=== PATIENT | male | born 1955 | race Caucasian/White ===

== ENCOUNTER → 2016-10-09 | Outpatient (CLI) | payer OTHER ==
[2016-10-09 09:08] LABS: ALBUMIN 3.9 gm/dl (3.1-4.5); ALKALINE PHOSPHATASE 59 U/L (45-117); BILIRUBIN, TOTAL 0.8 mg/dl (0.2-1.0); BUN 14 mg/dl (7-24); CARBON DIOXIDE 28 mmol/L (21-32); CHLORIDE 109 mmol/L (98-107); CHOLESTEROL 157 mg/dL (<200); CPK 238 U/L (39-308); EST GLOM FILT AFRICAN AMERICAN > 60 ml/min; GLUCOSE 97 mg/dL (65-99); HDL CHOLESTEROL 34 mg/dl (40-60); LDL CHOLESTEROL 108 mg/dL (9-159); SGOT/AST 21 IU/L (3-35); SGPT/ALT 26 U/L (12-78); SODIUM 141 mmol/L (136-145); TRIGLYCERIDES 75 mg/dl (<150); VLDL CHOLESTEROL 15 mg/dL (6-40)
[2016-10-11 00:04] LABS: TESTOSTERONE FREE, (DIRECT) 27.5 pg/mL (6.6-18.1)
== END | disposition home or self-care (01) ==
LOC: LAB 08:14
PROVIDERS: Family Medicine
DX: E78.00 Pure hypercholesterolemia, unspecified (principal); K21.9 Gastro-esophageal reflux disease without esophagitis; N20.0 Calculus of kidney

== ENCOUNTER → 2016-10-25 | Outpatient (CLI) | payer OTHER ==
[2016-10-26 07:06] LABS: LUTEINIZING HORMONE 004283 0.1 mIU/mL (1.7-8.6); PROLACTIN 004465 5.2 ng/mL (4.0-15.2)
== END | disposition home or self-care (01) ==
LOC: LAB 08:27
PROVIDERS: Internal Medicine
DX: E29.1 Testicular hypofunction (principal)

== ENCOUNTER → 2017-02-27 | Outpatient (CLI) | payer OTHER ==
[2017-02-27 09:30] LABS: ALBUMIN 4.1 gm/dl (3.1-4.5); ALKALINE PHOSPHATASE 68 U/L (45-117); BILIRUBIN, DIRECT 0.2 mg/dL (0.0-0.2); BUN 21 mg/dl (7-24); CHLORIDE 105 mmol/L (98-107); CHOLESTEROL 201 mg/dL (<200); CREATININE 1.02 mg/dL (0.70-1.30); HDL CHOLESTEROL 41 mg/dl (40-60); LDL CHOLESTEROL 138 mg/dL (9-159); POTASSIUM 4.2 mmol/L (3.5-5.1); SGOT/AST 20 IU/L (3-35); SGPT/ALT 27 U/L (12-78); SODIUM 140 mmol/L (136-145); TOTAL PROTEIN 7.5 gm/dL (6.4-8.2); TRIGLYCERIDES 108 mg/dl (<150); VLDL CHOLESTEROL 22 mg/dL (6-40)
[2017-02-27 10:20] LABS: PTH INTACT 47.5 pg/mL (14.0-72.0); VITAMIN D, 25-HYDROXY 28.4 ng/mL (30-100)
== END | disposition home or self-care (01) ==
LOC: LAB 08:29
PROVIDERS: Internal Medicine
DX: N20.0 Calculus of kidney (principal); E78.5 Hyperlipidemia, unspecified; E29.1 Testicular hypofunction; N40.0 Benign prostatic hyperplasia without lower urinary tract symptoms

== ENCOUNTER → 2017-02-28 | Outpatient (CLI) | payer OTHER ==
[2017-03-02 02:05] LABS: CITRIC ACID 24 HR URINE 399 mg/24 hr (320-1240)
== END | disposition home or self-care (01) ==
LOC: LAB 10:09
PROVIDERS: Internal Medicine
DX: N20.0 Calculus of kidney (principal)

== ENCOUNTER → 2017-07-09 | Outpatient (CLI) | payer OTHER ==
[2017-07-09 11:02] LABS: CHLORIDE 106 mmol/L (98-107); POTASSIUM 4.2 mmol/L (3.5-5.1); SODIUM 140 mmol/L (136-145)
[2017-07-09 11:08] LABS: ALBUMIN 4.2 gm/dl (3.1-4.5); ALKALINE PHOSPHATASE 54 U/L (45-117); BILIRUBIN, DIRECT 0.2 mg/dL (0.0-0.2); BUN 21 mg/dl (7-24); CHOLESTEROL 185 mg/dL (<200); CREATININE 1.12 mg/dL (0.70-1.30); HDL CHOLESTEROL 35 mg/dl (40-60); LDL CHOLESTEROL 130 mg/dL (9-159); SGOT/AST 22 IU/L (3-35); SGPT/ALT 28 U/L (12-78); TOTAL PROTEIN 7.5 gm/dL (6.4-8.2); TRIGLYCERIDES 101 mg/dl (<150); VLDL CHOLESTEROL 20 mg/dL (6-40)
[2017-07-09 12:06] LABS: VITAMIN D, 25-HYDROXY 48.5 ng/mL (30-100)
== END | disposition home or self-care (01) ==
LOC: LAB 09:53
PROVIDERS: Internal Medicine
DX: E78.5 Hyperlipidemia, unspecified (principal); E55.9 Vitamin D deficiency, unspecified; N20.0 Calculus of kidney; E34.9 Endocrine disorder, unspecified

== ENCOUNTER → 2018-06-02 | Outpatient (CLI) | payer MEDICARE ==
[2018-06-02 10:33] LABS: ALBUMIN 3.9 gm/dl (3.1-4.5); BUN 17 mg/dl (7-24); CHLORIDE 105 mmol/L (98-107); CREATININE 1.07 mg/dL (0.70-1.30); POTASSIUM 3.8 mmol/L (3.5-5.1); SGOT/AST 21 IU/L (3-35); SGPT/ALT 33 U/L (12-78); SODIUM 138 mmol/L (136-145); TOTAL PROTEIN 7.5 gm/dL (6.4-8.2); URIC ACID 6.2 mg/dL (3.5-7.2)
[2018-06-02 10:37] LABS: ALKALINE PHOSPHATASE 58 U/L (45-117); BILIRUBIN, DIRECT 0.2 mg/dL (0.0-0.2); CHOLESTEROL 147 mg/dL (<200); HDL CHOLESTEROL 31 mg/dl (40-60); LDL CHOLESTEROL 81 mg/dL (9-159); TRIGLYCERIDES 175 mg/dl (<150); VLDL CHOLESTEROL 35 mg/dL (6-40)
[2018-06-02 11:19] LABS: VITAMIN D, 25-HYDROXY 52.8 ng/mL (30-100)
== END | disposition home or self-care (01) ==
LOC: LAB 09:18
PROVIDERS: Internal Medicine
DX: E55.9 Vitamin D deficiency, unspecified (principal); E78.5 Hyperlipidemia, unspecified; N20.0 Calculus of kidney; E34.9 Endocrine disorder, unspecified

== ENCOUNTER → 2018-10-28 | Outpatient (CLI) | payer MEDICARE ==
[2018-10-28 09:04] LABS: VITAMIN D, 25-HYDROXY 50.6 ng/mL (30-100)
[2018-10-28 09:47] LABS: ALBUMIN 4.2 gm/dl (3.1-4.5); ALKALINE PHOSPHATASE 76 U/L (45-117); BILIRUBIN, DIRECT 0.2 mg/dL (0.0-0.2); BUN 22 mg/dl (7-24); CHLORIDE 103 mmol/L (98-107); CHOLESTEROL 132 mg/dL (<200); CREATININE 1.05 mg/dL (0.70-1.30); HDL CHOLESTEROL 43 mg/dl (40-60); LDL CHOLESTEROL 72 mg/dL (9-159); POTASSIUM 3.7 mmol/L (3.5-5.1); SGOT/AST 28 IU/L (3-35); SGPT/ALT 55 U/L (12-78); SODIUM 139 mmol/L (136-145); TOTAL PROTEIN 7.3 gm/dL (6.4-8.2); TRIGLYCERIDES 83 mg/dl (<150); VLDL CHOLESTEROL 17 mg/dL (6-40)
== END | disposition home or self-care (01) ==
LOC: LAB 08:06
PROVIDERS: Internal Medicine
DX: E78.5 Hyperlipidemia, unspecified (principal); E34.9 Endocrine disorder, unspecified; E55.9 Vitamin D deficiency, unspecified; N40.0 Benign prostatic hyperplasia without lower urinary tract symptoms; Z79.899 Other long term (current) drug therapy

== ENCOUNTER → 2018-11-20 | Outpatient (CLI) | payer MEDICARE ==
[2018-11-20 08:09] LABS: BASO % 0.6 % (0.0-1.0); EOS # 0.2 10*3/uL (0.0-0.4); HEMATOCRIT 41.2 % (42.0-52.0); HEMOGLOBIN 14.1 g/dl (14.0-18.0); LYMPH # 1.4 10*3/uL (1.3-4.4); LYMPH % 20.8 % (27.0-41.0); MEAN CELL VOLUME 90.7 fl (80.0-94.0); MEAN CORPUSCULAR HGB 31.1 pg (27.0-31.0); MEAN CORPUSCULAR HGB CONC 34.2 g/dl (33.0-37.0); MEAN PLATELET VOLUME 9.9 fl (9.6-12.3); MONO # 0.7 10*3/uL (0.1-1.0); MONO % 10.4 % (3.0-9.0); NEUT # 4.4 10*3/uL (2.3-7.9); NEUT % 64.8 % (47.0-73.0); PLATELET COUNT AUTOMATED 163 10*3/uL (130-400); RED BLOOD COUNT 4.54 10*6/uL (4.50-5.90); RED CELL DISTRI WIDTH 12.4 % (0-14.5); WHITE BLOOD COUNT 6.7 10*3/uL (4.8-10.8)
[2018-11-20 08:33] LABS: BUN 16 mg/dl (7-24); CHLORIDE 105 mmol/L (98-107); CREATININE 0.97 mg/dL (0.70-1.30); POTASSIUM 3.8 mmol/L (3.5-5.1); SODIUM 139 mmol/L (136-145)
== END | disposition home or self-care (01) ==
LOC: LAB 07:38
PROVIDERS: Orthopaedic Surgery
DX: Z01.818 Encounter for other preprocedural examination (principal); M79.645 Pain in left finger(s); G89.29 Other chronic pain; M65.352 Trigger finger, left little finger; M65.322 Trigger finger, left index finger; S69.92XA Unspecified injury of left wrist, hand and finger(s), initial encounter; X58.XXXA Exposure to other specified factors, initial encounter; Y93.89 Activity, other specified; Y92.89 Other specified places as the place of occurrence of the external cause; Y99.8 Other external cause status

== ENCOUNTER → 2019-08-25 | Outpatient (CLI) | payer MEDICARE ==
[2019-08-25 08:47] LABS: ALKALINE PHOSPHATASE 75 U/L (45-117); BILIRUBIN, DIRECT 0.2 mg/dL (0.0-0.2); BUN 19 mg/dl (7-24); CHLORIDE 105 mmol/L (98-107); CHOLESTEROL 121 mg/dL (<200); CREATININE 1.19 mg/dL (0.70-1.30); POTASSIUM 3.8 mmol/L (3.5-5.1); SGOT/AST 34 IU/L (3-35); SGPT/ALT 43 U/L (12-78); SODIUM 138 mmol/L (136-145); TOTAL PROTEIN 7.6 gm/dL (6.4-8.2); TRIGLYCERIDES 98 mg/dl (<150); VLDL CHOLESTEROL 20 mg/dL (6-40)
[2019-08-25 08:50] LABS: HDL CHOLESTEROL 35 mg/dl (40-60); LDL CHOLESTEROL 66 mg/dL (9-159)
[2019-08-25 10:12] LABS: PTH INTACT 50.1 pg/mL (18.5-88.0)
[2019-08-25 10:13] LABS: VITAMIN D, 25-HYDROXY 55.1 ng/mL (30-100)
== END | disposition home or self-care (01) ==
LOC: LAB 07:58
PROVIDERS: Internal Medicine
DX: N20.0 Calculus of kidney (principal); E29.1 Testicular hypofunction; E34.9 Endocrine disorder, unspecified; E78.5 Hyperlipidemia, unspecified; N40.0 Benign prostatic hyperplasia without lower urinary tract symptoms; E55.9 Vitamin D deficiency, unspecified

== ENCOUNTER → 2020-01-25 | Outpatient (CLI) | payer MEDICARE ==
[2020-01-25 09:23] LABS: ALBUMIN 3.9 gm/dl (3.1-4.5); ALKALINE PHOSPHATASE 72 U/L (45-117); BILIRUBIN, DIRECT 0.2 mg/dL (0.0-0.2); BUN 18 mg/dl (7-24); CHLORIDE 107 mmol/L (98-107); CHOLESTEROL 137 mg/dL (<200); CREATININE 1.27 mg/dL (0.70-1.30); HDL CHOLESTEROL 42 mg/dl (40-60); LDL CHOLESTEROL 72 mg/dL (9-159); POTASSIUM 3.8 mmol/L (3.5-5.1); SGOT/AST 23 IU/L (3-35); SGPT/ALT 33 U/L (12-78); SODIUM 140 mmol/L (136-145); TOTAL PROTEIN 7.5 gm/dL (6.4-8.2); TRIGLYCERIDES 114 mg/dl (<150); URIC ACID 3.8 mg/dL (3.5-7.2); VLDL CHOLESTEROL 23 mg/dL (6-40)
[2020-01-25 10:29] LABS: VITAMIN D, 25-HYDROXY 56.1 ng/mL (30-100)
[2020-01-25 10:30] LABS: PTH INTACT 40.4 pg/mL (18.5-88.0)
== END | disposition home or self-care (01) ==
LOC: LAB 08:02
PROVIDERS: ATTEND Internal Medicine
DX: E55.9 Vitamin D deficiency, unspecified (principal); R73.02 Impaired glucose tolerance (oral); N20.0 Calculus of kidney; E74.39 Other disorders of intestinal carbohydrate absorption; E78.5 Hyperlipidemia, unspecified; E34.9 Endocrine disorder, unspecified

== ENCOUNTER → 2020-05-25 | Outpatient (CLI) | payer MEDICARE ==
[2020-05-25 10:43] LABS: ALKALINE PHOSPHATASE 75 U/L (45-117); BILIRUBIN, DIRECT 0.3 mg/dL (0.0-0.2); BUN 18 mg/dl (7-24); CHLORIDE 103 mmol/L (98-107); CHOLESTEROL 136 mg/dL (<200); CREATININE 1.32 mg/dL (0.70-1.30); HDL CHOLESTEROL 46 mg/dl (40-60); LDL CHOLESTEROL 76 mg/dL (9-159); POTASSIUM 4.1 mmol/L (3.5-5.1); SGOT/AST 24 IU/L (3-35); SGPT/ALT 41 U/L (12-78); SODIUM 138 mmol/L (136-145); TOTAL PROTEIN 7.5 gm/dL (6.4-8.2); TRIGLYCERIDES 68 mg/dl (<150); VLDL CHOLESTEROL 14 mg/dL (6-40)
[2020-05-25 11:05] LABS: PTH INTACT 42.7 pg/mL (18.5-88.0)
== END | disposition home or self-care (01) ==
LOC: LAB 09:40
PROVIDERS: ATTEND Internal Medicine
DX: N20.0 Calculus of kidney (principal); E78.5 Hyperlipidemia, unspecified; E74.39 Other disorders of intestinal carbohydrate absorption; E55.9 Vitamin D deficiency, unspecified; E34.9 Endocrine disorder, unspecified; R73.09 Other abnormal glucose

== ENCOUNTER → 2020-05-26 | Outpatient (CLI) | payer MEDICARE ==
[2020-06-08 22:06] LABS: BUSHITE 3.29 ratio (0.00-3.00); CALCIUM OXALATE 13.67 ratio (0.00-6.00); CALCIUM, URINE 11.9 mg/dL (Not Estab.); CITRIC ACID (CITRATE) 426 mg/24 hr (320-1240); CREATININE, URINE 1428.4 mg/24 hr (1000.0-2000.0); CREATININE, URINE 146.5 mg/dL (Not Estab.); MAGNESIUM, URINE 14.4 mg/dL (Not Estab.); MONOSODIUM URATE 12.15 ratio (0.00-4.00); OSMOLALITY, URINE 753 (300-900); SODIUM, URINE 172 (58-337); SODIUM, URINE 176 mmol/L (Not Estab.); STRUVITE 0.38 ratio (0.00-1.00); URIC ACID 1.39 ratio (0.00-1.20); pH 24 HR URINE 6.3 (.)
== END | disposition home or self-care (01) ==
LOC: LAB 12:06
PROVIDERS: ATTEND Internal Medicine
DX: N20.0 Calculus of kidney (principal)

== ENCOUNTER → 2021-01-30 | Outpatient (CLI) | payer MEDICARE ==
[2021-01-30 10:10] LABS: CHLORIDE 108 mmol/L (98-107); POTASSIUM 3.9 mmol/L (3.5-5.1); SODIUM 139 mmol/L (136-145)
[2021-01-30 10:15] LABS: BUN 14 mg/dl (7-24); CREATININE 1.11 mg/dL (0.70-1.30)
== END | disposition home or self-care (01) ==
LOC: LAB 09:41
PROVIDERS: ATTEND Anesthesiology Pain Medicine
DX: Z01.810 Encounter for preprocedural cardiovascular examination (principal); Z79.01 Long term (current) use of anticoagulants

== ENCOUNTER → 2021-04-05 | Outpatient (CLI) | payer MEDICARE ==
[2021-04-05 08:42] LABS: ALBUMIN 3.7 gm/dl (3.1-4.5); ALKALINE PHOSPHATASE 66 U/L (45-117); BUN 16 mg/dl (7-24); CHLORIDE 107 mmol/L (98-107); CREATININE 1.04 mg/dL (0.70-1.30); IRON 85 ug/dL (65-175); POTASSIUM 3.9 mmol/L (3.5-5.1); SGOT/AST 27 IU/L (3-35); SGPT/ALT 43 U/L (12-78); SODIUM 139 mmol/L (136-145); TOTAL IRON BINDING CAPACITY 293 ug/dl (250-450); TOTAL PROTEIN 6.9 gm/dL (6.4-8.2); URIC ACID 3.6 mg/dL (3.5-7.2)
[2021-04-05 09:47] LABS: VITAMIN D, 25-HYDROXY 44.9 ng/mL (30-100)
== END | disposition home or self-care (01) ==
LOC: LAB 07:57
PROVIDERS: ATTEND Internal Medicine
DX: E74.39 Other disorders of intestinal carbohydrate absorption (principal); E55.9 Vitamin D deficiency, unspecified; N20.0 Calculus of kidney; E34.9 Endocrine disorder, unspecified; E78.5 Hyperlipidemia, unspecified; D50.8 Other iron deficiency anemias; Z79.899 Other long term (current) drug therapy

== ENCOUNTER → 2021-09-23 | Outpatient (CLI) | payer MEDICARE ==
[2021-09-23 08:18] LABS: ALKALINE PHOSPHATASE 77 U/L (45-117); BUN 19 mg/dl (7-24); CHLORIDE 107 mmol/L (98-107); CHOLESTEROL 108 mg/dL (<200); CREATININE 1.16 mg/dL (0.70-1.30); LDL CHOLESTEROL 51 mg/dL (9-159); POTASSIUM 3.9 mmol/L (3.5-5.1); SGOT/AST 38 IU/L (3-35); SGPT/ALT 55 U/L (12-78); SODIUM 139 mmol/L (136-145); TOTAL PROTEIN 6.8 gm/dL (6.4-8.2); TRIGLYCERIDES 71 mg/dl (<150); URIC ACID 3.4 mg/dL (3.5-7.2)
[2021-09-23 09:44] LABS: VITAMIN D, 25-HYDROXY 67.2 ng/mL (30-100)
== END | disposition home or self-care (01) ==
LOC: LAB 07:35
PROVIDERS: ATTEND Internal Medicine
DX: E74.39 Other disorders of intestinal carbohydrate absorption (principal); E29.1 Testicular hypofunction; N20.0 Calculus of kidney; E78.5 Hyperlipidemia, unspecified; E55.9 Vitamin D deficiency, unspecified; E34.9 Endocrine disorder, unspecified; N40.0 Benign prostatic hyperplasia without lower urinary tract symptoms

== ENCOUNTER → 2022-02-26 | Outpatient (CLI) | payer MEDICARE ==
[2022-02-26 09:31] LABS: ALKALINE PHOSPHATASE 68 U/L (46-116); BUN 18 mg/dl (9-23); CHLORIDE 104 mmol/L (98-107); CHOLESTEROL 98 mg/dL (<200); LDL CHOLESTEROL 48 mg/dL (9-159); POTASSIUM 4.1 mmol/L (3.4-5.1); SGPT/ALT 27 U/L (10-49); TOTAL PROTEIN 7.2 gm/dL (6.0-8.0); TRIGLYCERIDES 72 mg/dl (<150); URIC ACID 4.5 mg/dL (3.1-9.2)
[2022-02-26 11:48] LABS: TESTOSTERONE, TOTAL 1149 ng/dL (113-882); VITAMIN D, 25-HYDROXY 50.1 ng/mL (30-100)
== END | disposition home or self-care (01) ==
LOC: LAB 08:32
PROVIDERS: ATTEND Internal Medicine
DX: E74.39 Other disorders of intestinal carbohydrate absorption (principal); E55.9 Vitamin D deficiency, unspecified; E34.9 Endocrine disorder, unspecified; E78.5 Hyperlipidemia, unspecified; N40.0 Benign prostatic hyperplasia without lower urinary tract symptoms; N20.0 Calculus of kidney; Z79.899 Other long term (current) drug therapy

== ENCOUNTER → 2022-07-19 | Outpatient (CLI) | payer MEDICARE ==
[2022-07-19 09:08] LABS: VITAMIN D, 25-HYDROXY 53.9 ng/mL (30-100)
== END | disposition home or self-care (01) ==
LOC: LAB 07:51
PROVIDERS: ATTEND Internal Medicine
DX: E74.39 Other disorders of intestinal carbohydrate absorption (principal); E78.5 Hyperlipidemia, unspecified; E34.9 Endocrine disorder, unspecified; Z79.899 Other long term (current) drug therapy; N40.0 Benign prostatic hyperplasia without lower urinary tract symptoms

== ENCOUNTER → 2022-12-28 | Outpatient (CLI) | payer MEDICARE ==
[2022-12-28 10:16] LABS: ALKALINE PHOSPHATASE 80 U/L (46-116); BUN 14 mg/dl (9-23); CHLORIDE 108 mmol/L (98-107); CHOLESTEROL 101 mg/dL (<200); LDL CHOLESTEROL 53 mg/dL (9-159); POTASSIUM 4.3 mmol/L (3.4-5.1); SGPT/ALT 31 U/L (5-49); TOTAL PROTEIN 6.8 gm/dL (6.0-8.0); TRIGLYCERIDES 52 mg/dl (<150); URIC ACID 3.9 mg/dL (3.7-9.2)
[2022-12-28 10:31] LABS: VITAMIN D, 25-HYDROXY 67.7 ng/mL (30-100)
== END | disposition home or self-care (01) ==
LOC: LAB 08:56
PROVIDERS: ATTEND Internal Medicine
DX: E55.9 Vitamin D deficiency, unspecified (principal); N20.0 Calculus of kidney; N40.0 Benign prostatic hyperplasia without lower urinary tract symptoms; E74.39 Other disorders of intestinal carbohydrate absorption

== ENCOUNTER → 2023-07-06 | Outpatient (CLI) | payer MEDICARE ==
[2023-07-06 11:41] LABS: ALKALINE PHOSPHATASE 74 U/L (46-116); BUN 16 mg/dl (9-23); CHLORIDE 107 mmol/L (98-107); CHOLESTEROL 90 mg/dL (<200); LDL CHOLESTEROL 40 mg/dL (9-159); POTASSIUM 4.3 mmol/L (3.4-5.1); SGPT/ALT 35 U/L (5-49); TOTAL PROTEIN 6.7 gm/dL (6.0-8.0); TRIGLYCERIDES 85 mg/dl (<150); URIC ACID 4.5 mg/dL (3.7-9.2)
[2023-07-06 13:01] LABS: VITAMIN D, 25-HYDROXY 60.9 ng/mL (30-100)
== END | disposition home or self-care (01) ==
LOC: LAB 10:31
PROVIDERS: ATTEND Internal Medicine
DX: E34.9 Endocrine disorder, unspecified (principal); E29.1 Testicular hypofunction; E55.9 Vitamin D deficiency, unspecified; N20.0 Calculus of kidney; N40.0 Benign prostatic hyperplasia without lower urinary tract symptoms

== ENCOUNTER → 2023-11-26 | Outpatient (CLI) | payer MEDICARE ==
[2023-11-26 11:00] LABS: TOTAL PROTEIN 6.9 gm/dL (6.0-8.0)
== END | disposition home or self-care (01) ==
LOC: LAB 10:00
PROVIDERS: ATTEND Internal Medicine
DX: E29.1 Testicular hypofunction (principal); E56.9 Vitamin deficiency, unspecified; E55.9 Vitamin D deficiency, unspecified; E34.9 Endocrine disorder, unspecified; Z79.899 Other long term (current) drug therapy